=== PATIENT | male | born 1975 | race Caucasian/White ===

== ENCOUNTER 2017-10-20 09:08 | Emergency (ER) | END 2017-10-20 14:19 | disposition home or self-care (01) ==

== ENCOUNTER 2017-10-22 09:18 | Emergency (ER) | END 2017-10-22 11:00 | disposition home or self-care (01) ==

== ENCOUNTER 2017-12-03 09:39 | Emergency (ER) | END 2017-12-03 12:25 | disposition home or self-care (01) ==

== ENCOUNTER → 2018-01-07 | Outpatient (CLI) | END | disposition home or self-care (01) ==